=== PATIENT | male | born 1935 | race Two or more races ===

== ENCOUNTER 2019-04-08 20:31 | Emergency (ER) | payer MEDICARE ==
[~2019-04-08] VITALS: Ht 182.9 cm; Wt 82.0 kg
[~2019-04-08 20:31] MED LIST: EPINEPHRINE 0.1MG/ML (1:10,000) 10ML SYR ONE; SODIUM BICARBONATE 8.4% MEQ/ML 50ML VIAL IV ONE
[2019-04-08 20:33] VITALS: BP 0/0
== END 2019-04-09 01:18 | disposition expired ==
LOC: ER 20:31
DX: I46.9 Cardiac arrest, cause unspecified (principal); K92.2 Gastrointestinal hemorrhage, unspecified; E11.65 Type 2 diabetes mellitus with hyperglycemia; I10 Essential (primary) hypertension
CPT/HCPCS: 82962; 92950; 99291; J3490